=== PATIENT | male | born 1945 | race Caucasian/White ===

== ENCOUNTER 2021-04-17 17:14 | Emergency (ER) | payer MEDICARE, SELFPAY ==
[2021-04-17 17:20] VITALS: BP 177/96; PULSE 75; RESP 16; TEMP 36.7; O2SAT 97
--- NOTE | 2021-04-17 17:31 | DI.RAD_ITS ---
Exam(s) XR SHOULDER LT COMPLETE 2+V EXAM: XR SHOULDER LT COMPLETE 2+V CLINICAL HISTORY: fall while skiing, pain. TECHNIQUE: 2D digital imaging was performed. COMPARISON: No exams were available for comparison FINDINGS: There is no evidence of acute fracture of the glenohumeral joint nor dislocation. However, there is a comminuted displaced overriding fracture of the midshaft of the clavicle. No associated dislocatio n of the AC joint Incidentally noted is an element of chondrocalcinosis in the glenohumeral joint as well as some calci fication in the subacromial space above the greater tuberosity, probably consistent with calcific rot ator cuff tendinitis. Subtle irregularity of the inferior cortical surface of the osseous glenoid is also noted, possibly related to degenerative changes but also possibly related to element of Bankart -type injury, particularly if there has been prior dislocation of the glenohumeral joint. IMPRESSION: Overriding midshaft comminuted fracture of the left clavicle. Other findings as above. DATA REPOSITORY: RADIATION DOSE DELIVERED:
--- NOTE | 2021-04-17 17:42 | ED.GENADUL_ITS ---
Discharge Plan Disposition Patient Disposition: HOME Condition: Stable Discharge Details Chief Complaint: Orthopedic Clinical Impression: Clavicle fracture Primary Care Provider: Unknown,Unknown ED Provider: Michel Graves Home Meds and New Rx's Prescriptions: No Action lorazepam 0.5 mg Tablet 0.5 mg PO BID RF: 0 Hormone Shot .MONTHLY RF: 0 Discharge Instructions Instructions: Clavicle Fracture (ED) Additional Instructions: Please follow-up with your primary care physician, if she has any issues coordinating follow-up with security services specialist please call back. Medical Decision Making 75-year-old male presents after mechanical fall while skiing, fell onto the left shoulder, no loss conscious, no acute distress, hemodynamically stable, neurologically intact, slight decreased range of motion left shoulder compared to right unable to fully abduct however no palpable deformity crepitus or laxity, neurovascular exam intact, likely contusion versus rotator cuff tear partial versus less likely dislocation versus less likely fracture. Patient offered analgesia however he is comfortable at this time, will likely discharge home pending normal x-ray 18:11 Evidence of acute comminuted left clavicle fracture, no evidence of skin tenting or neurovascular compromise. Patient has follow-up with his primary tomorrow and will coordinate orthopedic follow-up through them. Given home care instructions will be placed in sling. HPI General Date/Time Provider Initiated Documentation: 04/17/21 17:17 . HPI Narrative: 75-year-old male denies past medical history endorses fall while skiing, fell onto his left side hitting his left shoulder, no loss of consciousness, pain to the left shoulder with slight decreased range of motion, no other injuries Related Data Home Medications Medication Instructions Recorded Confirmed Hormone Shot .MONTHLY 04/17/21 lorazepam 0.5 mg PO BID 04/17/21 04/17/21 Allergies Allergy/AdvReac Type Severity Reaction Status Date / Time Penicillins Allergy Unverified 04/17/21 17:23 General Stated Complaint: Orthopedic ZAK: 4 Review of Systems All systems reviewed & are unremarkable except as noted in HPI and below Constitutional Constitutional: Reports system reviewed and no additional complaints, except as documented ENT Ears, Nose, Mouth, and Throat: Reports system reviewed and no additional complaints, except as documented Cardiovascular Cardiovascular: Reports system reviewed and no additional complaints, except as documented Respiratory Respiratory: Reports system reviewed and no additional complaints, except as documented Gastrointestinal Gastrointestinal: Reports system reviewed and no additional complaints, except as documented Musculoskeletal Comments: Left shoulder discomfort Neurologic Neurologic: Reports system reviewed and no additional complaints, except as doc umented [facility] All Active Problems (Updated 04/17/21 @ 18:13 by Michel Graves MD) Clavicle fracture (Acute) Social History Smoking/Tobacco Use Status: Never Smoking risk assessment performed?: Yes Alcohol Intake: current Alcohol Intake frequency: 0-2 drinks per day Substance use type: does not use Exam Const General: cooperative, healthy appearing and no acute distress [facility] Head: normal to inspection, no palpable skull fracture, normocephalic and atraumatic Eyes General: appearance normal, both eyes and all related structures Neck Neck: normal visual inspection, full ROM and supple Chest Chest: normal inspection of the chest Resp Effort & Inspection: normal respiratory effort and able to speak in complete sentences Skin General skin exam: no rashes or lesions noted Neuro General: patient alert, patient awake, patient oriented x3 and moves all extremities Extrem Other: Left upper extremity: Able to shoulder abduct shoulder to approximately 90 degrees, forward flexion is intact Extension intact, no palpable deformity, laxity, patient has intact radial pulse, elbow wrist and fingers intact Course Vital Signs Vital signs: Vital Signs Temperature 36.7 C 04/17/21 17:20 Pulse 75 04/17/21 17:20 Respiratory Rate 16 04/17/21 17:20 Blood Pressure 177/96 H 04/17/21 17:20 Pulse Oximetry 97 04/17/21 17:20 Temperature 36.7 C 04/17/21 17:20 Temperature Source Skin 04/17/21 17:20 Pulse 75 04/17/21 17:20 Respiratory Rate 16 04/17/21 17:20 Respiratory Effort 04/17/21 17:20 Blood Pressure 177/96 H 04/17/21 17:20 Blood Pressure Position Sitting 04/17/21 17:20 Pulse Oximetry 97 04/17/21 17:20 Oxygen Delivery Method Room Air 04/17/21 17:20 Oxygen Flow Rate 0 04/17/21 17:20 Pain Level 8 04/17/21 17:20
--- NOTE | 2021-04-17 18:01 | DI.VRAD_ITS ---
PROCEDURE INFORMATION: Exam: XR Left Shoulder Exam date and time: 04/17/2021 17:46 Age: 75 years old Clinical indication: Other: Pain, fall while skiing TECHNIQUE: Imaging protocol: XR Left shoulder. Views: 2 or more views. COMPARISON: No relevant prior studies available. FINDINGS: Bones/joints: Acute comminuted fracture of the clavicle. Over-ride by 4 cm, 1 shaft with distal superior angulation. Underlying mild to moderate degenerative changes in the glenohumeral and acromioclavicular joints. No dislocation. Soft tissues: Soft tissue swelling surrounding the fracture site. IMPRESSION: Acute comminuted and overriding fracture of the clavicle. Dictated and Authenticated by: Rosita Warner MD. Ordering:EMILY Pearson MD
== END 2021-04-17 18:24 | disposition home or self-care (01) ==
PROVIDERS: Emergency Provider Emergency Medicine
DX: S42.022A Displaced fracture of shaft of left clavicle, initial encounter for closed fracture (principal); V00.321A Fall from snow-skis, initial encounter
CPT/HCPCS: 99283; 73030